=== PATIENT | male | born 1955 | race Caucasian/White ===

== ENCOUNTER 2018-02-21 16:24 | Emergency (ER) | payer SELFPAY ==
--- NOTE | 2018-02-21 16:41 | EDM.PDOC ---
ED HPI GENERAL MEDICAL PROBLEM - General Chief Complaint: Neurological Problem Stated Complaint: [id number] DIZZINESS Time Seen by Provider: 02/21/18 16:30 Source of Information: Reports: Patient, RN, RN Notes Reviewed History Limitations: Reports: No Limitations - History of Present Illness INITIAL COMMENTS - FREE TEXT/NARRATIVE: Pt presents to the ER with c/o dizziness and blurred vision in the right eye. He states he is having dizziness, and more so when he stands. He also c/o a "headache in the right eye". Pt states he takes blood pressure medications, which he has taken today. He states he is a smoker. Pt denies chest pain. Admits to SOB when he stands up and gets dizzy. Denies fever, chills. He states he has had a cough/cold for the past few weeks. Pt admits to hx of aortic aneurysm. Onset: Today, Sudden - Related Data Allergies Allergy/AdvReac Type Severity Reaction Status Date / Time No Known Allergies Allergy Verified 02/21/18 16:34 Home Meds: Home Meds Atenolol 1 tab PO DAILY 02/11/16 [History] Losartan [Cozaar] 2 tab PO DAILY 02/11/16 [History] Tamsulosin [Flomax] 1 tab PO BEDTIME 02/11/16 [History] atorvaSTATin [Lipitor] 1 tab PO BEDTIME 02/21/18 [History] Past Medical History Cardiovascular History: Reports: Hypertension - Past Surgical History Male Surgical History: Reports: Ureteral Stent Social & Family History - Family History Family Medical History: Noncontributory ED ROS GENERAL - Review of Systems Review Of Systems: ROS reveals no pertinent complaints other than HPI. ED EXAM, DIZZINESS - Physical Exam Exam: See Below Exam Limited By: No Limitations General Appearance: Alert, WD/WN Eye Exam: Bilateral Eye: EOMI, Normal Inspection, PERRL (5 sluggish) Nystagmus: No: worsens with head to L, worsens with head to R, reproducible, reversible, constant, short duration Ears: Normal External Exam, Hearing Grossly Normal Nose: Normal Inspection Throat/Mouth: Normal Inspection, Normal Voice, No Airway Compromise Head Exam: Atraumatic, Normocephalic Vertigo: No: worsens with head to L, worsens with head to R, reproducible, reversible, constant, short duration Neck: Normal Inspection, Supple, Non-Tender, Full Range of Motion Respiratory/Chest: No Respiratory Distress, Lungs Clear, Normal Breath Sounds, No Accessory Muscle Use, Chest Non-Tender Cardiovascular: Normal Peripheral Pulses, Regular Rate, Rhythm, No Edema, No Gallop, No JVD, No Murmur, No Rub GI/Abdominal: Normal Bowel Sounds, Soft, Non-Tender, No Organomegaly, No Distention, No Abnormal Bruit, No Mass (Male) Exam: Deferred Rectal (Males) Exam: Deferred Neurological: Alert, Normal Mood/Affect, Normal Dorsiflexion, CN II-XII Intact, Normal Plantar Flexion, Normal Gait, Normal Reflexes, No Motor/Sensory Deficits , Oriented x 3 Back Exam: Normal Inspection, Full Range of Motion, NT Extremities: Normal Inspection, Normal Range of Motion, Non-Tender, No Pedal Edema, Normal Capillary Refill Psychiatric: Normal Affect, Normal Mood Skin Exam: Warm, Dry, Intact, Normal Color, No Rash EKG INTERPRETATION EKG Date: 02/21/18 Time: 16:31 Rhythm: NSR Rate (Beats/Min): 69 [place]: Normal P-Wave: Present QRS: Normal ST-T: Normal QT: Normal Comparison: NA - No Prior EKG Course - Vital Signs Last Recorded V/S: Last Vital Signs Temp 97.9 F 02/21/18 18:59 Pulse 79 02/21/18 18:59 Resp 18 02/21/18 18:59 BP 107/66 02/21/18 18:59 Pulse Ox 99 02/21/18 18:59 Orthostatic Blood Pressure [ 79/55 Standing] Orthostatic Blood Pressure [ 83/51 Sitting] - Orders/Labs/Meds Orders: Active Orders 24 hr Category Date Time Status EKG Documentation Completion [RC] STAT Care 02/21/18 16:31 Active Peripheral IV Care [RC] . DIRECTED Care 02/21/18 16:34 Active CULTURE BLOOD [BC] Stat Lab 02/21/18 16:50 Received CULTURE BLOOD [BC] Stat Lab 02/21/18 16:58 Received DRUG SCREEN URINE BIORAD [URCHEM] Stat Lab 02/21/18 18:08 Ordered UA W/MICROSCOPIC [URIN] Stat Lab 02/21/18 18:08 Ordered Sodium Chloride 0.9% [Saline Flush] Med 02/21/18 16:33 Active 10 ml FLUSH ASDIRECTED PRN Blood Culture x2 Reflex Set [OM.PC] Stat Oth 02/21/18 16:31 Ordered Peripheral IV Insertion Adult [OM.PC] Stat Oth 02/21/18 16:31 Ordered Medication Orders Sodium Chloride (Saline Flush) 10 ml FLUSH ASDIRECTED PRN PRN Reason: Keep Vein Open Last Admin: 02/21/18 17:08 Dose: 10 ml Labs: Laboratory Tests 02/21/18 02/21/18 02/21/18 Range/Units 16:50 16:50 16:50 WBC 5.8 (5.0-10.0) 10^3/uL RBC 5.60 (4.6-6.2) 10^6/uL Hgb 17.9 D (14.0-18.0) g/dL Hct 52.1 (40.0-54.0) % MCV 93.0 (80-100) fL MCH 32.0 (27.0-34.0) pg MCHC 34.4 (33.0-35.0) g/dL Plt Count 141 L (150-450) 10^3/uL Neut % (Auto) 66.7 (42.2-75.2) % Lymph % (Auto) 26.1 (20.5-50.1) % [place] % (Auto) 5.7 (2-8) % Eos % (Auto) 1.2 (1.0-3.0) % Baso % (Auto) 0.3 (0.0-1.0) % PT 10.0 (9.0-12.0) SEC INR 1.0 (0.9-1.2) Sodium 137 (135-145) mmol/L Potassium 3.3 L (3.6-5.0) mmol/L Chloride 97 L (101-111) mmol/L Carbon Dioxide 28.0 (21.0-31.0) mmol/L Anion Gap 15.3 BUN 20 H (7-18) mg/dL Creatinine 1.4 H (0.6-1.3) mg/dL Est Cr Clr Drug Dosing 62.21 mL/min Estimated GFR (MDRD) 52 BUN/Creatinine Ratio 14.28 Glucose 126 H (74-105) mg/dL Lactic Acid (0.5-2.2) mmol/L Calcium 9.4 (8.4-10.2) mg/dl Magnesium 1.5 L (1.8-2.5) mg/dL Total Bilirubin 1.3 H (0.2-1.0) mg/dL AST 87 H (10-42) IU/L ALT 77 H (10-60) IU/L Alkaline Phosphatase 67 (42-121) IU/L Troponin I < 0.02 (0.00-0.02) ng/ml Total Protein 7.5 (6.7-8.2) g/dl Albumin 4.3 (3.2-5.5) g/dl Globulin 3.2 Albumin/Globulin Ratio 1.34 Urine Color (YELLOW) Urine Appearance (CLEAR) Urine pH (5.0-9.0) Ur Specific [place] (1.005-1.030) Urine Protein (NEGATIVE) Urine Glucose (UA) (NEGATIVE) Urine Ketones (NEGATIVE) Urine Occult Blood (NEGATIVE) Urine Nitrite (NEGATIVE) Urine Bilirubin (NEGATIVE) Urine Urobilinogen (0.2-1.0) mg/dL Ur Leukocyte Esterase (NEGATIVE) Urine RBC /HPF Urine WBC (0-5/HPF) /HPF Ur Epithelial Cells /HPF Urine Bacteria (0-FEW/HPF) /HPF Urine Opiates Screen (NEGATIVE) Ur Oxycodone Screen (NEGATIVE) Urine Methadone Screen (NEGATIVE) Ur Barbiturates Screen (NEGATIVE) U Tricyclic Antidepress (NEGATIVE) Ur Phencyclidine Scrn (NEGATIVE) Ur Amphetamine Screen (NEGATIVE) U Methamphetamines Scrn (NEGATIVE) Urine MDMA Screen (NEGATIVE) U Benzodiazepines Scrn (NEGATIVE) Urine Cocaine Screen (NEGATIVE) U Marijuana (THC) Screen (NEGATIVE) Ethyl Alcohol < 5 mg/dL 02/21/18 02/21/18 02/21/18 Range/Units 16:50 18:08 18:08 WBC (5.0-10.0) 10^3/uL RBC (4.6-6.2) 10^6/uL Hgb (14.0-18.0) g/dL Hct (40.0-54.0) % MCV (80-100) fL MCH (27.0-34.0) pg MCHC (33.0-35.0) g/dL Plt Count (150-450) 10^3/uL Neut % (Auto) (42.2-75.2) % Lymph % (Auto) (20.5-50.1) % [place] % (Auto) (2-8) % Eos % (Auto) (1.0-3.0) % Baso % (Auto) (0.0-1.0) % PT (9.0-12.0) SEC INR (0.9-1.2) Sodium (135-145) mmol/L Potassium (3.6-5.0) mmol/L Chloride (101-111) mmol/L Carbon Dioxide (21.0-31.0) mmol/L Anion Gap BUN (7-18) mg/dL Creatinine (0.6-1.3) mg/dL Est Cr Clr Drug Dosing mL/min Estimated GFR (MDRD) BUN/Creatinine Ratio Glucose (74-105) mg/dL Lactic Acid 2.3 H (0.5-2.2) mmol/L Calcium (8.4-10.2) mg/dl Magnesium (1.8-2.5) mg/dL Total Bilirubin (0.2-1.0) mg/dL AST (10-42) IU/L ALT (10-60) IU/L Alkaline Phosphatase (42-121) IU/L Troponin I (0.00-0.02) ng/ml Total Protein (6.7-8.2) g/dl Albumin (3.2-5.5) g/dl Globulin Albumin/Globulin Ratio Urine Color Light yellow (YELLOW) Urine Appearance Clear (CLEAR) Urine pH 6.5 (5.0-9.0) Ur Specific [place] <= 1.005 (1.005-1.030) Urine Protein Negative (NEGATIVE) Urine Glucose (UA) Negative (NEGATIVE) Urine Ketones Negative (NEGATIVE) Urine Occult Blood Trace-intact H (NEGATIVE) Urine Nitrite Negative (NEGATIVE) Urine Bilirubin Negative (NEGATIVE) Urine Urobilinogen 0.2 (0.2-1.0) mg/dL Ur Leukocyte Esterase Negative (NEGATIVE) Urine RBC 0-5 /HPF Urine WBC 0-5 (0-5/HPF) /HPF Ur Epithelial Cells Rare /HPF Urine Bacteria Rare (0-FEW/HPF) /HPF Urine Opiates Screen Negative (NEGATIVE) Ur Oxycodone Screen Negative (NEGATIVE) Urine Methadone Screen Negative (NEGATIVE) Ur Barbiturates Screen Negative (NEGATIVE) U Tricyclic Antidepress Negative (NEGATIVE) Ur Phencyclidine Scrn Negative (NEGATIVE) Ur Amphetamine Screen Negative (NEGATIVE) U Methamphetamines Scrn Negative (NEGATIVE) Urine MDMA Screen Negative (NEGATIVE) U Benzodiazepines Scrn Negative (NEGATIVE) Urine Cocaine Screen Negative (NEGATIVE) U Marijuana (THC) Screen Negative (NEGATIVE) Ethyl Alcohol mg/dL Meds: Medications Generic Name Dose Route Start Last Admin Trade Name Freq PRN Reason Stop Dose Admin Sodium Chloride 10 ml 02/21/18 16:33 02/21/18 17:08 Saline Flush FLUSH 10 ml ASDIRECTED PRN Administration Keep Vein Open Discontinued Medications Generic Name Dose Route Start Last Admin Trade Name Freq PRN Reason Stop Dose Admin Sodium Chloride 1,000 mls @ 999 mls/hr 02/21/18 16:33 02/21/18 17:07 Normal Saline IV 02/21/18 17:33 999 mls/hr .BOLUS ONE Administration - Radiology Interpretation Free Text/Narrative:: Chest xray: No acute findings CT of head without contrast: No acute intracranial hemorrhage, small right frontoparietal cortical infarct See rad report Departure - Departure Time of Disposition: 18:39 Disposition: DC/Tfer to Acute Hospital 02 Condition: Fair Clinical Impression: Infarction of visual cortex Hypotension Qualifiers: Hypotension type: unspecified hypotension type Qualified Code(s): I95.9 - Hypotension, unspecified - Discharge Information Forms: ED Department Discharge, Interfacility Transfer EMTALA
[2018-02-21] MEDS: Sodium Chloride 0.9% 1,000 ML IV ONE ×2 (17:07→19:19)
[2018-02-21] MEDS: Sodium Chloride 0.9% 10 ML Syringe FLUSH PRN (17:08)
[2018-02-21 17:22] LABS: CHLORIDE,CL 97 mmol/L (101-111); SODIUM,NA 137 mmol/L (135-145)
[2018-02-21 19:01] VITALS: BP 107/66
--- NOTE | 2018-02-25 10:01 | EKG ---
02/21/2018- DREA WATSON - FINDINGS: This 12-lead EKG shows normal sinus rhythm with left anterior fascicular block. No significant ST elevation or ST depression noted on this 12- lead EKG. Prominent P waves noted on lead II. [facility] /[id number]
== END 2018-02-21 19:22 ==
LOC: DL.ED 16:24
DX: I63.9 Cerebral infarction, unspecified (principal); I95.9 Hypotension, unspecified; I10 Essential (primary) hypertension; Z79.899 Other long term (current) drug therapy
CPT/HCPCS: 36415; 70450; 71045; 80053; 80305; 81001; 83605; 83735; 84484; 85025; 85610; 87040; 93005; 93010; 96365; 99285; G0480; J7030; J7050

== ENCOUNTER 2020-06-18 16:49 | Emergency (ER) | payer MEDICAID ==
[2020-06-18] MEDS ORDERED: traMADol 50 MG Tab PO ONE (16:50)
[2020-06-18] MEDS ORDERED: Propofol 200 MG/20 ML SDV IV ONE (16:50)
[2020-06-18] MEDS ORDERED: Sodium Chloride 0.9% 10 ML Syringe FLUSH PRN (16:56)
[2020-06-18 17:06] VITALS: BP 111/75; PULSE 93
--- NOTE | 2020-06-18 17:14 | CR ---
PROCEDURE INFORMATION: Exam: XR Right Ankle Exam date and time: 06/18/2020 5:01 PM Age: 64 years old Clinical indication: Other: Fall; Additional info: Deformity, injury TECHNIQUE: Imaging protocol: XR Right ankle. Views: 1 or 2 views. COMPARISON: No relevant prior studies available. FINDINGS: Bones/joints: Fracture dislocation of the ankle. There is a fracture of the distal diaphysis of the fibula and medial malleolus with separation of the fracture fragments. Large joint effusion. Soft tissues: Moderate soft tissue swelling. IMPRESSION: 1. Fracture dislocation of the ankle. 2. Large joint effusion. 3. Moderate soft tissue swelling.
--- NOTE | 2020-06-18 17:57 | CR ---
PROCEDURE INFORMATION: Exam: XR Right Ankle Exam date and time: 06/18/2020 5:50 PM Age: 64 years old Clinical indication: Other: Poreduction; Additional info: Post reduction TECHNIQUE: Imaging protocol: XR Right ankle. Views: 1 or 2 views. COMPARISON: CR Ankle 2V Rt 06/18/2020 5:01 PM FINDINGS: Bones/joints: There has been reduction in the previous noted dislocation of the ankle. Fractures of the distal tibia and fibula are present. Moderate joint effusion noted overlying soft tissue swelling. IMPRESSION: 1. There has been reduction in the previous noted dislocation of the ankle. 2. Fractures of the distal tibia and fibula are present. 3. Moderate joint effusion noted overlying soft tissue swelling.
--- NOTE | 2020-06-18 18:19 | CT ---
PROCEDURE INFORMATION: Exam: CT Head Without Contrast Exam date and time: 06/18/2020 5:56 PM Age: 64 years old Clinical indication: Other: Fall; Additional info: Altered mental status TECHNIQUE: Imaging protocol: Computed tomography of the head without contrast. Radiation optimization: All CT scans at this facility use at least one of these dose optimization techniques: automated exposure control; mA and/or kV adjustment per patient size (includes targeted exams where dose is matched to clinical indication); or iterative reconstruction. COMPARISON: CT Head wo Cont 02/21/2018 5:54 PM FINDINGS: Brain: No hemorrhage, mass effect or midline shift. Age-related atrophy and chronic white matter ischemic changes, with no evidence of an acute intracranial abnormality. Ventricles: Normal. No ventriculomegaly. Bones/joints: No acute fracture. Sinuses: Visualized sinuses are unremarkable. No fluid levels. Mastoid air cells: Visualized mastoid air cells are well aerated. Soft tissues: No acute changes IMPRESSION: 1. No hemorrhage, mass effect or midline shift. 2. Age-related atrophy and chronic white matter ischemic changes, with no evidence of an acute intracranial abnormality.
--- NOTE | 2020-06-18 18:23 | EDM.PDOC ---
Scribed by Esthela Macias 06/18/20 [id number] for Marissa Ashraf NP ED HPI GENERAL MEDICAL PROBLEM - General Chief Complaint: Lower Extremity Injury/Pain Stated Complaint: ANKLE INJURY Time Seen by Provider: 06/18/20 16:57 Source of Information: Reports: Patient, RN, RN Notes Reviewed History Limitations: Reports: No Limitations - History of Present Illness INITIAL COMMENTS - FREE TEXT/NARRATIVE: Patient presents to ER per POV with complaint of right ankle injury. Patient states he fell walking across his living room a few hours ago. Patient states he laid on the floor for a few hours. Patient admits to drinking alcohol today, last drink approximately 3 hours ago. Denies any drug use. Admits to smoking. Admits to having a cardiac stent, history of stroke without residual effect. Rate pain 10/10. Patient does not remember falling. Onset: Today Duration: Constant Location: Reports: Lower Extremity, Right Quality: Reports: Ache, Throbbing Severity: Severe Improves with: Reports: None Worsens with: Reports: None Associated Symptoms: Reports: No Other Symptoms Right Ankle Pain Score (Numeric/FACES): 10 - Related Data Allergies Allergy/AdvReac Type Severity Reaction Status Date / Time No Known Allergies Allergy Verified 06/18/20 17:07 Home Meds: Home Meds Losartan [Cozaar] 25 tab PO DAILY 02/11/16 [History] Tamsulosin [Flomax] 0.4 mg PO BEDTIME 02/11/16 [History] Aspirin [Adult Low Dose Aspirin EC] 81 mg PO DAILY 03/10/19 [History] Clopidogrel [Plavix] 75 mg PO DAILY 03/10/19 [History] DULoxetine [Cymbalta] 60 mg PO DAILY 03/10/19 [History] Ibuprofen 800 mg PO DAILY 03/10/19 [History] Meclizine [Antivert] 25 mg PO TID PRN 03/10/19 [History] atorvaSTATin Calcium [Atorvastatin Calcium] 80 mg PO DAILY 03/10/19 [History] Past Medical History HEENT History: Reports: None Cardiovascular History: Reports: Hypertension Respiratory History: Reports: None Gastrointestinal History: Reports: None Genitourinary History: Reports: None Musculoskeletal History: Reports: None Neurological History: Reports: None Psychiatric History: Reports: None Endocrine/Metabolic History: Reports: None Hematologic History: Reports: None Immunologic History: Reports: None Oncologic (Cancer) History: Reports: None Dermatologic History: Reports: None - Infectious Disease History Infectious Disease History: Reports: Chicken Pox - Past Surgical History Male Surgical History: Reports: Ureteral Stent Social & Family History - Family History Family Medical History: Noncontributory - Caffeine Use Caffeine Use: Reports: Coffee, Soda Review of Systems - Review of Systems Review Of Systems: Comprehensive ROS is negative, except as noted in HPI. ED EXAM, GENERAL - Physical Exam Exam: See Below Exam Limited By: Intoxication General Appearance: Moderate Distress Eye Exam: Bilateral Eye: EOMI, Normal Inspection, PERRL Ears: Normal External Exam, Normal Canal, Hearing Grossly Normal, Normal TMs Nose: Normal Inspection, Normal Mucosa, No Blood Throat/Mouth: Normal Inspection, Normal Lips, Normal Teeth, Normal Gums, Normal Oropharynx, Normal Voice, No Airway Compromise Head: Atraumatic, Normocephalic Neck: Normal Inspection, Supple, Non-Tender, Full Range of Motion Respiratory/Chest: Chest Non-Tender, Decreased Breath Sounds, Rhonchi (throughout) Cardiovascular: Normal Peripheral Pulses, Regular Rate, Rhythm, No Gallop, No JVD, No Murmur, No Rub Peripheral Pulses: 1+: Dorsalis Pedis (L), Dorsalis Pedis (R), 2+: Radial (L), Radial (R) GI/Abdominal: Normal Bowel Sounds, Soft, Non-Tender, No Organomegaly, No Distention, No Abnormal Bruit, No Mass (Male) Exam: Deferred Rectal (Males) Exam: Deferred Back Exam: Normal Inspection, Full Range of Motion, NT Extremities: Joint Swelling (right ankle), Leg Pain (right ankle deformity), Limited Range of Motion (right ankle), Pallor (right ankle) Neurological: Alert, Oriented, Normal Cognition Psychiatric: Normal Affect, Normal Mood, Anxious Skin Exam: Warm, Dry, Other (Abrasion medial right ankle) Lymphatic: No Adenopathy Course - Vital Signs Last Recorded V/S: Last Vital Signs Temp 96.6 F L 06/18/20 17:00 Pulse 93 06/18/20 17:00 Resp 18 06/18/20 17:00 BP 111/75 06/18/20 17:00 Pulse Ox 92 L 06/18/20 17:00 - Orders/Labs/Meds Orders: Active Orders 24 hr Category Date Time Status Peripheral IV Care [RC] . DIRECTED Care 06/18/20 16:57 Active Sodium Chloride 0.9% [Saline Flush] Med 06/18/20 16:56 Active 10 ml FLUSH ASDIRECTED PRN Peripheral IV Insertion Adult [OM.PC] Stat Oth 06/18/20 16:56 Ordered Medication Orders Sodium Chloride (Saline Flush) 10 ml FLUSH ASDIRECTED PRN PRN Reason: Keep Vein Open Last Admin: 06/18/20 17:54 Dose: 10 ml Documented by: CLEVE Labs: Laboratory Tests 06/18/20 06/18/20 06/18/20 Range/Units 17:11 17:11 17:11 WBC 13.3 H (5.0-10.0) 10^3/uL RBC 5.00 (4.6-6.2) 10^6/uL Hgb 15.5 D (14.0-18.0) g/dL Hct 46.1 (40.0-54.0) % MCV 92.2 (80-100) fL MCH 31.0 (27.0-34.0) pg MCHC 33.6 (33.0-35.0) g/dL Plt Count 253 D (150-450) 10^3/uL Neut % (Auto) 75.3 H (42.2-75.2) % Lymph % (Auto) 19.6 L (20.5-50.1) % [place] % (Auto) 3.7 (2-8) % Eos % (Auto) 1.2 (1.0-3.0) % Baso % (Auto) 0.2 (0.0-1.0) % Sodium 143 (136-145) mmol/L Potassium 4.0 (3.5-5.1) mmol/L Chloride 107 (98-107) mmol/L Carbon Dioxide 21 (21-32) mmol/L Anion Gap 19.0 H (7-13) mEq/L BUN 15 (7-18) mg/dL Creatinine 1.22 (0.70-1.30) mg/dL Est Cr Clr Drug Dosing 71.69 mL/min Estimated GFR (MDRD) 60 BUN/Creatinine Ratio 12.3 (No establ ref range) Glucose 96 (74-99) mg/dL Calcium 8.0 L (8.5-10.1) mg/dL Total Bilirubin 0.3 (0.2-1.0) mg/dL AST 27 (15-37) U/L ALT 37 (16-63) U/L Alkaline Phosphatase 77 (46-116) U/L Total Protein 7.4 (6.4-8.2) g/dL Albumin 3.7 (3.4-5.0) g/dL Globulin 3.7 Albumin/Globulin Ratio 1.0 Ethyl Alcohol 242 (0) mg/dL Meds: Medications Generic Name Dose Route Start Last Admin Trade Name Freq PRN Reason Stop Dose Admin Sodium Chloride 10 ml 06/18/20 16:56 06/18/20 17:54 Saline Flush FLUSH 10 ml ASDIRECTED PRN Administration Keep Vein Open - Radiology Interpretation Free Text/Narrative:: Right ankle x-ray: Fracture dislocation of the ankle. Large joint effusion. Moderate soft tissue swelling. See rad report. Post reduction x-ray: There has been reduction in the previous noted di slocation of the ankle. Fractures of the distal tibia and fibula are present. Moderate joint effusion noted overlying soft tissue swelling. See rad report. Head CT: PROCEDURE INFORMATION: Exam: CT Head Without Contrast Exam date and time: 06/18/2020 5:56 PM Age: 64 years old Clinical indication: Other: Fall; Additional info: Altered mental status TECHNIQUE: Imaging protocol: Computed tomography of the head without contrast. Radiation optimization: All CT scans at this facility use at least one of these dose optimization techniques: automated exposure control; mA and/or kV adjustment per patient size (includes targeted exams where dose is matched to clinical indication); or iterative reconstruction. COMPARISON: CT Head wo Cont 02/21/2018 5:54 PM FINDINGS: Brain: No hemorrhage, mass effect or midline shift. Age-related atrophy and chronic white matter ischemic changes, with no evidence of an acute intracranial abnormality. Ventricles: Normal. No ventriculomegaly. Bones/joints: No acute fracture. Sinuses: Visualized sinuses are unremarkable. No fluid levels. Mastoid air cells: Visualized mastoid air cells are well aerated. Soft tissues: No acute changes IMPRESSION: 1. No hemorrhage, mass effect or midline shift. 2. Age-related atrophy and chronic white matter ischemic changes, with no evidence of an acute intracranial abnormality. Thank you for allowing us to participate in the care of your patient. Dictated and Authenticated by: Nasim Wood DO 06/18/2020 6:19 PM Central Time ([place] & [place]) See rad report - Re-Assessments/Exams Free Text/Narrative Re-Assessment/Exam: 06/18/20 18:40 Discussed patient case with Dr. Lopez who states the ankle can be reduced and splinted, patient can be seen in the clinic on Sunday morning. Departure - Departure Time of Disposition: 18:39 Disposition: Home, Self-Care 01 Condition: Fair Clinical Impression: Intoxication Ankle fracture, lateral malleolus, closed Qualifiers: Encounter type: initial encounter Fracture alignment: displaced Laterality: right Qualified Code(s): S82.61XA - Displaced fracture of lateral malleolus of right fibula, initial encounter for closed fracture Tibia/fibula fracture Qualifiers: Encounter type: initial encounter Fracture type: closed Laterality: right Qualified Code(s): S82.201A - Unspecified fracture of shaft of right tibia, initial encounter for closed fracture; S82.401A - Unspecified fracture of shaft of right fibula, initial encounter for closed fracture - Discharge Information *PRESCRIPTION DRUG MONITORING PROGRAM REVIEWED*: No *COPY OF PRESCRIPTION DRUG MONITORING REPORT IN PATIENT [place]: No Instructions: Displaced Medial or Posterior Malleolar Ankle Fracture Treated With ORIF, Cast or Splint Care, Adult, [id number], Displaced Medial or Posterior Malleolar Ankle Fracture Treated With ORIF, Care After, Closed Reduction for Ankle Fracture or Dislocation, Care After, Ankle Fracture, [id number], Crutch Use, Adult, [id number] Forms: ED Department Discharge Additional Instructions: Rx: Tramadol May use Tylenol and/or ibuprofen as directed for pain Refrain from drinking alcohol [facility] up at [facility] at 8 AM on Sunday [facility] is at the [facility] You will see Dr. Lopez [phone] Elevate and ice the area as tolerated No weightbearing on the right foot Use crutches as tolerated Sepsis Event Note (ED) - Focused Exam Vital Signs: Vital Signs Temp Pulse Resp BP Pulse Ox 06/18/20 17:00 96.6 F L 93 18 111/75 92 L - My Orders Last 24 Hours: My Active Orders 06/18/20 16:56 Sodium Chloride 0.9% [Saline Flush] 10 ml FLUSH ASDIRECTED PRN Peripheral IV Insertion Adult [OM.PC] Stat 06/18/20 16:57 Peripheral IV Care [RC] . DIRECTED - Assessment/Plan Last 24 Hours: My Active Orders 06/18/20 16:56 Sodium Chloride 0.9% [Saline Flush] 10 ml FLUSH ASDIRECTED PRN Peripheral IV Insertion Adult [OM.PC] Stat 06/18/20 16:57 Peripheral IV Care [RC] . DIRECTED I have read and agree with the documentation that has been completed regarding this visit. By signing this record, I attest that the documentation was completed in my physical presence and is an accurate record of the encounter.
[2020-06-18] MEDS ORDERED: traMADol 50 MG Tab ONE (19:05)
== END 2020-06-18 19:02 | disposition home or self-care (01) ==
LOC: DL.ED 16:49
DX: S82.61XA Displaced fracture of lateral malleolus of right fibula, initial encounter for closed fracture (principal); S82.401A Unspecified fracture of shaft of right fibula, initial encounter for closed fracture; F10.129 Alcohol abuse with intoxication, unspecified; Z79.82 Long term (current) use of aspirin; Z79.02 Long term (current) use of antithrombotics/antiplatelets; I10 Essential (primary) hypertension; Z79.899 Other long term (current) drug therapy; Y90.8 Blood alcohol level of 240 mg/100 ml or more
CPT/HCPCS: 27840; 36415; 70450; 73600; 80053; 80307; 85025; 99284; A9270; J2704